=== PATIENT | female | born 1980 | race Caucasian/White ===

== ENCOUNTER 2023-05-01 14:28 | Emergency (ER) | payer BC, SELFPAY ==
--- NOTE | 2023-05-01 14:31 | ED.GENADUL_ITS ---
HPI General Date/Time Provider Initiated Documentation: 05/01/23 14:31 . HPI Narrative: MDM This is an overall very well-appearing normothermic and not tachycardic 42-year-old female with knee pain status post rotational injury concerning for the possibility of ligamentous injury in the setting of negative plain films with no signs of any acute osseous abnormalities. No pain out of proportion to suggest necrotizing soft tissue infection. Patient is not obese and so I am not suspicious for a knee dislocations so I did not feel that the patient required a CT angiogram of her lower extremity. No calf pain nor swelling to suggest DVT. In the absence of any calf tenderness my suspicion was exceedingly low for Achilles tendon injury so I did not perform a Cantu test. Patient is able to straight leg raise and as result I am not suspicious of quadriceps tendon injury. No fevers nor erythema nor significant limitations in the range of motion in her left knee so my suspicion for septic arthritis is exceedingly low. No abdominal pain to suggest ruptured AAA and patient lacks vascular risk factors I did not feel that she required a CT angiogram with runoffs. [place] and received a copy of her radiographs. I advised her to be in touch with her primary care provider next week to arrange for close outpatient follow-up. We discussed that she may benefit from an outpatient MRI once the inflammation has decreased in her knee but that primary care follow-up would be an initial first step. She was placed in a knee immobilizer and given crutches. She will be weightbearing as tolerated on her left lower extremity. We discussed return to the emergency department for any significant weakness or decreased range of motion in her left foot. She understood her return indications and was discharged with an empiric trial of expectant outpatient management. Chronic conditions affecting the care of the patient: N/A History obtained from an outside historian: N/A External record review: N/A Medications: Acetaminophen Social determinants of health affecting disposition: N/A Management discussed with: N/A Treatment/interventions considered: N/A Response to therapies provided: N/A HPI This is a previously healthy 42-year-old female arrived to the emergency department via private vehicle in the setting of left knee pain. Patient was reportedly skiing today. She reportedly caught an edge. She had her skis crossed and she felt a pop in her left knee. She was able to stand up. She was able to subsequently ski down. She has been walking with a limp as result. She is vacationing in the area for the week. She received Motrin at 2 PM. She has a remote history of a right MCL repair. She did not strike her head. She is not having any pain in her calf or numbness or tingling in her left foot. Exam General: Well-appearing in no acute distress speaking in complete sentences. Head: Normocephalic, atraumatic. Eye:[Pupils equal, round reactive to light.] Extraocular eye movements intact. No conjunctival injection. No scleral icterus. Ear, nose, mouth, throat: Grossly normal inspection. Normal voice, handling secretions normally. Neck: Trachea midline. Cardiovascular: Well-perfused distal extremities. Respiratory: Nonlabored respiration. Gastrointestinal: Nondistended abdomen. Musculoskeletal: Left lower extremity: Patient is able to straight leg raise. On inspection left lower extremity has no signs of trauma. No ecchymoses. No lacerations. Patient is able to flex her left knee approximately 90 degrees. Her left foot is warm well-perfused with 2+ DP and PT pulses. She has 5 out of 5 strength in dorsi and nima ntarflexion of the left foot. She has no calf tenderness. No palpable cords. There is no significant laxity to her left knee. No significant effusion. Negative anterior posterior drawer test. Patient does have lateral and posterior knee tenderness. Skin: Normal for age and race, grossly normal temperature and turgor. No acute rash. Neurologic: Alert and appropriate, no apparent acute deficits. Psychiatric: Mood and manner are appropriate. Grooming and personal hygiene are appropriate. Related Data Home Medications Medication Instructions Recorded Confirmed fluoxetine 20 mg capsule (Prozac) 20 mg PO DAILY 05/01/23 05/01/23 levonorgestrel 21 mcg/24 hours (8 1 device intrauterine ONCE 05/01/23 05/01/23 yrs) 52 mg intrauterine device (Mirena) mesalamine 500 mg capsule,extended 2,000 mg PO BID 05/01/23 05/01/23 release (Pentasa) ustekinumab 90 mg/mL subcutaneous 90 mg subcut Q6W 05/01/23 05/01/23 syringe (Stelara) Allergies Allergy/AdvReac Type Severity Reaction Status Date / Time levofloxacin Allergy Mild Skin Rash Unverified 05/01/23 14:39 Medical Decision Making Quality:SDOH Health Related Social Needs: No Data to Display PFSH All Active Problems (Updated 05/01/23 @ 16:44 by Brandon Dong MD) Acute pain of left knee (Acute) Social History Smoking risk assessment performed?: No Discharge Plan Disposition Patient Disposition: Home Discharge Details Clinical Impression: Acute pain of left knee Primary Care Provider: Jade,Local ED Provider: Brandon Dong Home Meds and New Rx's Prescriptions: Continued mesalamine [Pentasa] 500 mg capsule, extended release 2,000 mg PO BID Mirena 21 mcg/24 hours (8 yrs) 52 mg intrauterine device 1 device intrauterine ONCE Rx Instructions: as a single dose Stelara 90 mg/mL syringe 90 mg subcut Q6W fluoxetine [Prozac] 20 mg capsule 20 mg PO DAILY Discharge Instructions Instructions: Knee Pain (ED) Additional Instructions: You were seen in the emergency department for your left knee pain. You are x- ray showed no sign of any broken bones. As we discussed you likely have damaged one of the ligaments in your left knee. Please wear this knee immobilizer and use crutches as needed. You may bear weight as you are able to tolerate. Please return to the emergency department, as we discussed, if you develop any numbness or tingling in your left foot or any color changes in her left foot. Otherwise please call your primary care provider this week to schedule an appointment when you return home in the next approximately 10 days. For your pain please take medications as follows: 1. Take acetaminophen (Tylenol), 1,000 mg (two 500 mg tabs) every 6 hours [2. Take ibuprofen (Advil), 400 mg every 6 hours.]
[2023-05-01 14:33] VITALS: BP 116/75; PULSE 69; RESP 15; TEMP 36.9; O2SAT 100
--- NOTE | 2023-05-01 15:30 | DI.RAD_ITS ---
Exam(s) XR KNEE LT 4V AP,LAT,SELVIN,PAT EXAM: XR KNEE LT 4V AP,LAT,SELVIN,PAT CLINICAL HISTORY: Left knee pain. TECHNIQUE: 2D digital imaging was performed. Three views. COMPARISON: No exams were available for comparison FINDINGS: BONES: No acute fracture is present. No bony destructive lesion is seen. Enthesophyte at quadriceps insertion. JOINTS: The knee is normally aligned. No joint effusion is seen. SOFT TISSUE: Normal. IMPRESSION: No acute abnormality. DATA REPOSITORY: RADIATION DOSE DELIVERED:
[2023-05-01] MEDS: Acetaminophen 500 MG TAB 1000 MG PO (16:59)
== END 2023-05-01 16:59 | disposition home or self-care (01) ==
PROVIDERS: Emergency Provider Emergency Medicine
DX: M25.562 Pain in left knee (principal)
CPT/HCPCS: 99283; 73564